=== PATIENT | female | born 1940 | race Caucasian/White ===

== ENCOUNTER → 2017-10-14 12:05 | Outpatient (CLI) | payer MEDICARE, SELFPAY ==
--- NOTE | 2017-10-14 12:12 | BI_ITS ---
MAMMOGRAPHY - BILATERAL SCREENING 3-D ARON SYNTHESIS REASON FOR EXAM: Female, 77 years old. Bilateral Screening 3-D tomosynthesis PERTINENT HISTORY: No significant family history. TECHNIQUE: 2-D mammograms and 3-D Aron synthesis of the breast (s) were performed. CAD was performed. COMPARISON: None. FINDINGS: The breast composition is composed of scattered fibroglandular density. Scattered benign calcifications are seen. No dense spiculated masses or suspicious microcalcifications are identified. No architectural distortion is identified. There is no skin thickening or retraction. There has been no significant change since the prior study. BI/SCREENING MAMM (CAD), BILAT IMPRESSION: No mammographic signs of malignancy. Routine yearly mammograms recommended. ASSESSMENT CATEGORY: BIRADS Category 1: Negative. A letter regarding these results will be sent to the patient by the facility within 30 days. FOLLOW UP RECOMMENDATION: Yearly follow up mammogram recommended. (A) Approximately 10% of breast cancers are not detected by mammography. A normal mammogram should not delay biopsy of a clinically suspicious abnormality. Electronically Signed: Lev Ley MD at 14:02 EDT , Service support ,
== END ==
PROVIDERS: Family Provider Physician Assistant; PCP Physician Assistant; Visit Provider Physician Assistant
DX: Z12.31 Encounter for screening mammogram for malignant neoplasm of breast (principal)
CPT/HCPCS: 77063; 77067

== ENCOUNTER 2018-08-03 10:30 | Outpatient (RCR) | payer MEDICARE, SELFPAY ==
--- NOTE | 2018-06-26 14:32 | HP.PTEVAL ---
Patient's Visit Information ELIANE MCKEON is a 78 year old F referred to Physical Therapy by TESS Schumacher with a diagnosis of L shoulder impingement. Date of Evaluation: 06/26/18 Physical Therapist: Feliz Diaz DPT, OCS, CSCS - Visit Plan Frequency: 2x /Week Duration: 2-4 Weeks Plan: 2x/week for 2-4 weeks for ... 1. RC and postural strength. 2. c/s L rotation ROM and pec stretches and postural focus. 3. 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 Friend wanted to move yessica Harris helped her workign with arms alot. Schroeder some trouble with L shoulder and it kept worsening. Put some gel which did nto help. Saw Dr. Monzon and had x rays. Offered pills and shot and did not want those. Agreed to cortisone injection. Was good for a few days it helped but hurt again soon. Injection was May a few weeks ago. L shoulder pain 9/10 prior to injections, x rays show OA and calcifications. Now a lot better unless she overdoes whcih she did last week. Did keep her up at night but ROM is limited. Shot helped 50%. Has seen chirpractor. Wants to wash wall and spring cleaning which she cannot do right now. 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 No regular exercises. - Pain L shoulder Pain Intensity (Out of 10): 0 Pain Intensity Range: 0, 10 - Objective L shulder tenderness supraspinatus mildly. L UT also tender moderately compared to R. Forward head posture. c/s AROM ext adn L SB and rotation pain in L UT, + c/s compression slightly. L rotation 45 adn R 65, ext to 50. UE AROM WFL and withotu pain B. reflexes 2/3 bi and triceps. Sensation WNL to gross light touch B. Strength 4/5 shoulders and elbows and wrist without pain or abnormalities. - HK and - neer test. - sulcus. repeated ret seems to improve ROM, NE on pain which is minimal today. Pecs tight B and head is forward as are scapula in posture. - Goals Goal 1:: Full aROM c/s without pain and Approp posture 50% of time without VC Goal Time Frame: 4-6 Weeks Goal 2:: Patient feel 75% improved in pain with 2/10 at worst and very intermittent. Goal Time Frame: 4-6 Weeks Goal 3:: i approp HEP for posture and necka nd shoulders to minimize future problems. Goal Time Frame: 4-6 Weeks Goal 4:: Work without increasing pain Goal Time Frame: 4-6 Weeks - Rehabilitation Potential Physical Therapy Diagnosis: L shoulder OA vs impingement vs. cervical. Rehabilitation Potential: Fair - Anticipated Interventions Patient/Client Instruction: Educate patient on: Condition, Plan of Care For the Purpose of:: To decrease pain, To increase ROM, To improve nutrient delivery to tissue Therapeutic Exercise to Include: Strength training, Postural training, Flexibilty training, Passive ROM, Active ROM For the Purpose of:: To decrease pain, To increase ROM, To improve nutrient delivery to tissue, To increase tolerance to activity/condition/position, To improve ability of physical actions for home/community/work/leisure Thank you for the opportunity to evaluate your patient. For Medicare and Medicare HMO plans, please review the plan of care and approve it. It will need to be FAXED BACK to us at [phone] for Medicare purposes. For Medicare only, by signing this I certify the plan of care. Please let me know if there are questions or concerns regarding this plan of care. Physician Signature: Date:
--- NOTE | 2018-10-10 18:48 | HP.PTDCSUM_ITS ---
HP - PT D/C Summary It has been my pleasure to treat ELIANE MCKEON under orders from TESS Schumacher, for the diagnosis of L shoulder impingement for a total of 4 visit(s). Discharge Date: 08/03/18 Please see the following information for a summary of their discharge status. - Subjective Subjective: Busy and not much pain. 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 Shoulder held up well. Getting exercises in sometimes. Keeps busy. Sleep is OK. Activities normal. Work is normal. No f/u with doctor. - Pain L shoulder Pain Intensity (Out of 10): 0 - Overall Improvement % Improvement: 100 - Objective Objective/Function: Full aROM and strength symmetrical without pain today in L shoulder. Neck ROM 50 ext 65 R rot and 70 L rotation without pain. Moving well - Goals Goal 1:: Full aROM c/s without pain and Approp posture 50% of time without VC Goal Progress: Goal Met Goal 2:: Patient feel 75% improved in pain with 2/10 at worst and very intermittent. Goal Progress: Goal Met Goal 3:: i approp HEP for posture and necka nd shoulders to minimize future problems. Goal Progress: Goal Met Goal 4:: Work without increasing pain Goal Progress: Goal Met - Plan Plan: D/C - D/C Information Discharge Comments: Doing well adn will attempt to continue HEP.Contact doctor if pain returns. If there are questions or concerns regarding this patient's physical therapy, please feel free to call me at [phone]. Thank you for the referral of this patient. Sincerely, Feliz Diaz, DPT, OCS, CSCS
== END 2018-08-03 19:00 | disposition home or self-care (01) ==
LOC: PT 10:30
PROVIDERS: Family Provider Physician Assistant; PCP Physician Assistant; Referring Provider Physician Assistant Surgical; Visit Provider Physician Assistant Surgical
DX: M25.512 Pain in left shoulder (principal); M19.012 Primary osteoarthritis, left shoulder
CPT/HCPCS: 97110; 97162; 97530

== ENCOUNTER → 2019-01-02 10:14 | Outpatient (CLI) | payer MEDICARE, SELFPAY ==
--- NOTE | 2019-01-02 10:17 | BI_ITS ---
MAMMOGRAPHY - BILATERAL SCREENING REASON FOR EXAM: Female, 78 years old. Routine annual screening examination. PERTINENT HISTORY: Non-contributory. TECHNIQUE: Digital bilateral breast aron (3D mammographic acquisition) in the CC and MLO projections. 2-D mediolateral oblique (MLO) and craniocaudad (CC) views of both breasts were obtained. CAD: Full Field Digital Mammography with Computer Added Detection was performed. COMPARISON: Comparison is made with prior study dated October 14, 2017 and January 15, 2016 FINDINGS: Breast Composition: There are scattered areas of fibroglandular density. There are no dominant masses or suspicious calcifications. No other significant abnormalities are identified. There has been no significant change since the prior study. BI/SCREEN MAMM (CAD) W/ARON BILAT IMPRESSION: Stable bilateral screening mammogram. Yearly follow-up mammogram recommended. (A) ASSESSMENT CATEGORY: BIRADS Category 1: Negative. A letter regarding these results will be sent to the patient by the facility within 30 days. Approximately 10% of breast cancers are not detected by mammography. A normal mammogram should not delay biopsy of a clinically suspicious abnormality. [id number] Electronically Signed: Jorge Luis Hernandez, at 14:07 EDT , Service support ,
== END ==
PROVIDERS: Family Provider Physician Assistant; PCP Physician Assistant; Referring Provider Physician Assistant; Visit Provider Physician Assistant
DX: Z12.31 Encounter for screening mammogram for malignant neoplasm of breast (principal)
CPT/HCPCS: 77063; 77067

== ENCOUNTER → 2020-08-14 07:58 | Outpatient (CLI) | payer MEDICARE, SELFPAY ==
--- NOTE | 2020-08-14 08:03 | BI_ITS ---
MAMMOGRAPHY - BILATERAL SCREENING REASON FOR EXAM: Female, 80 years old. Routine annual screening examination. PERTINENT HISTORY: Non-contributory. TECHNIQUE: Digital bilateral breast aron (3D mammographic acquisition) in the CC and MLO projections. 2-D mediolateral oblique (MLO) and craniocaudad (CC) views of both breasts were obtained. CAD: Full Field Digital Mammography with Computer Added Detection was performed. COMPARISON: Comparison is made with prior examination dated 01/02/2019 and 10/14/2017. FINDINGS: Breast Composition: There are scattered areas of fibroglandular density. Possible 1.2 cm nodular density in the upper lateral deep portion of the right breast. Correlation with ultrasound is recommended. No other significant abnormalities are identified. BI/SCRN MAMM (CAD)W/ARON BILAT IMPRESSION: Possible 1.2 cm nodular density in the upper lateral deep portion of the right breast. Correlation with ultrasound is recommended. ASSESSMENT CATEGORY: BIRADS Category 0: Incomplete. Need additional imaging evaluation. A letter regarding these results will be sent to the patient by the facility within 30 days. Approximately 10% of breast cancers are not detected by mammography. A normal mammogram should not delay biopsy of a clinically suspicious abnormality. [id number] Electronically Signed: Jorge Luis Hernandez MD at 10:30 EDT , Service support ,
== END ==
PROVIDERS: PCP Physician Assistant; Referring Provider Physician Assistant; Visit Provider Physician Assistant
DX: Z12.31 Encounter for screening mammogram for malignant neoplasm of breast (principal)
CPT/HCPCS: 77063; 77067

== ENCOUNTER → 2020-08-21 10:22 | Outpatient (CLI) | payer MEDICARE, SELFPAY ==
--- NOTE | 2020-08-21 10:26 | US_ITS ---
STUDY: ULTRASOUND BREAST - RIGHT REASON FOR EXAM: Female, 80 years old. Abnormal screening mammogram. TECHNIQUE: Axial and longitudinal images of the RIGHT breast were performed with a high resolution ultrasound transducer. # OF IMAGES: 43 COMPARISON: Comparison is made with prior mammogram dated 08/14/2020. FINDINGS: RIGHT Breast: The lateral half of the right breast was examined by ultrasound. No sonographic abnormality is seen. Additional mammographic views will be obtained. US/Breast Limited Unilateral IMPRESSION: Unremarkable sonographic examination of the right breast as described. Additional mammographic views will be obtained. ASSESSMENT CATEGORY: BIRADS Category 0: Incomplete. Need additional imaging evaluation. A letter regarding these results will be sent to the patient by the facility within 30 days. Electronically Signed: Jorge Luis Hernandez MD at 13:26 EDT , Service support ,
--- NOTE | 2020-08-21 11:07 | BI_ITS ---
MAMMOGRAPHY - UNILATERAL DIAGNOSTIC: RIGHT BREAST REASON FOR EXAM: Female, 80 years old. Abnormal screening mammogram. PERTINENT HISTORY: Non-contributory. TECHNIQUE: Compression spot views of the right breast were obtained in the craniocaudad view and MLO view. CAD: Full Field Digital Mammography with Computer Added Detection was performed. COMPARISON: Comparison is made with prior mammogram dated 08/14/2020. FINDINGS: Breast Composition: There are scattered areas of fibroglandular density. There are no dominant masses or suspicious calcifications. No other significant abnormalities are identified. BI/DIAG MAMM W/CAD, UNILAT IMPRESSION: Stable unilateral diagnostic mammogram. One year follow-up mammogram recommended. (A) ASSESSMENT CATEGORY: BIRADS Category 2: Benign. A letter regarding these results will be sent to the patient by the facility within 30 days. Approximately 10% of breast cancers are not detected by mammography. A normal mammogram should not delay biopsy of a clinically suspicious abnormality. Electronically Signed: Jorge Luis Hernandez MD at 14:58 EDT , Service support ,
== END ==
PROVIDERS: PCP Physician Assistant; Referring Provider Family Medicine; Visit Provider Family Medicine
DX: R92.2 Inconclusive mammogram (principal)
CPT/HCPCS: 76642; 77065

== ENCOUNTER → 2021-10-01 | Outpatient (CLI) | payer MEDICARE, SELFPAY ==
--- NOTE | 2021-10-01 10:20 | BI_ITS ---
MAMMOGRAPHY - BILATERAL SCREENING REASON FOR EXAM: Female, 81 years old. Routine annual screening examination. PERTINENT HISTORY: Non-contributory. TECHNIQUE: Digital bilateral breast aron (3D mammographic acquisition) in the CC and MLO projections. 2-D mediolateral oblique (MLO) and craniocaudad (CC) views of both breasts were obtained. CAD: Full Field Digital Mammography with Computer Added Detection was performed. COMPARISON: Comparison is made with prior study dated 08/14/2020 and 01/02/2019. FINDINGS: Breast Composition: There are scattered areas of fibroglandular density. There are no dominant masses or suspicious calcifications. Stable benign-appearing bilateral No other significant abnormalities are identified. There has been no significant change since the prior study. BI/SCRN MAMM (CAD)W/ARON BILAT IMPRESSION: Stable bilateral screening mammogram. Yearly follow-up mammogram recommended. (A) ASSESSMENT CATEGORY: BIRADS Category 2: Benign. A letter regarding these results will be sent to the patient by the facility within 30 days. Approximately 10% of breast cancers are not detected by mammography. A normal mammogram should not delay biopsy of a clinically suspicious abnormality. [id number] Electronically Signed: Jorge Luis Hernandez MD at 11:38 EDT ,
== END | disposition home or self-care (01) ==
LOC: OPBI 10:18
PROVIDERS: PCP Physician Assistant; Visit Provider Physician Assistant
DX: Z12.31 Encounter for screening mammogram for malignant neoplasm of breast (principal)
CPT/HCPCS: 77063; 77067

== ENCOUNTER → 2023-02-08 | Outpatient (CLI) | payer MEDICARE, SELFPAY ==
--- NOTE | 2023-02-08 13:06 | BI_ITS ---
MAMMOGRAPHY - BILATERAL SCREENING REASON FOR EXAM: Female, 83 years old. Routine annual screening examination. PERTINENT HISTORY: Non-contributory. TECHNIQUE: Digital bilateral breast aron (3D mammographic acquisition) in the CC and MLO projections. 2-D mediolateral oblique (MLO) and craniocaudad (CC) views of both breasts were obtained. CAD: Full Field Digital Mammography with Computer Added Detection was performed. COMPARISON: Comparison is made with prior examination of October 01, 2021 and August 21, 2020. FINDINGS: Breast Composition: There are scattered areas of fibroglandular density. There are no dominant masses or suspicious calcifications. No other significant abnormalities are identified. There has been no significant change since the prior study. BI/SCRN MAMM (CAD)W/ARON BILAT IMPRESSION: Stable bilateral screening mammogram. Yearly follow-up mammogram recommended. (A) ASSESSMENT CATEGORY: BIRADS Category 1: Negative. A letter regarding these results will be sent to the patient by the facility within 30 days. Approximately 10% of breast cancers are not detected by mammography. A normal mammogram should not delay biopsy of a clinically suspicious abnormality. [id number] Electronically Signed: Jorge Luis Hernandez MD at 13:49 EST ,
== END | disposition home or self-care (01) ==
LOC: OPBI 13:05
PROVIDERS: PCP Physician Assistant; Referring Provider Physician Assistant; Visit Provider Physician Assistant
DX: Z12.31 Encounter for screening mammogram for malignant neoplasm of breast (principal)
CPT/HCPCS: 77063; 77067

== ENCOUNTER 2023-02-20 13:06 | Emergency (ER) | payer MEDICARE, SELFPAY ==
[2023-02-20 13:07] VITALS: BP 171/92; PULSE 89; RESP 18; TEMP 35.7; O2SAT 99; BMI 21.9
[2023-02-20 13:20] VITALS: BP 175/91
--- NOTE | 2023-02-20 13:20 | EKG12_ITS ---
Test Reason : DIZZINESS Blood Pressure : / mmHG Vent. Rate : 068 BPM Atrial Rate : 068 BPM P-R Int : 146 ms QRS Dur : 076 ms QT Int : 394 ms P-R-T Axes : 077 010 066 degrees QTc Int : 418 ms Normal sinus rhythm Normal ECG Confirmed by CLAUDIA SANCHEZ, ASIM ([id number]), video effects editor JERZY HERBERT ([id number]) on 02/22/2023 1:05:28 PM Referred By: BIJAL/JOSSIE Confirmed By:ASIM TAYLOR MD
--- NOTE | 2023-02-20 13:20 | CT_ITS ---
INDICATION: Dizziness EXAMINATION: CT BRAIN - CT Head or Brain W/O Contrast Injection TECHNIQUE: Multiple axial images were obtained of the head without intravenous contrast. A radiation dose optimization technique was used for this scan. IV Contrast dosage and agent: None. RADIATION DOSAGE (If Supplied By Facility): CTDIvol = ( 44.99 ) mGy, DLP = ( 745.49 ) mGycm COMPARISON: Prior study dated: 07/26/2015. FINDINGS: BRAIN PARENCHYMA: No intra- or extra-axial hemorrhage. Possible hemorrhage identified by AI not seen. No evidence of acute infarct. Mild periventricular deep white matter changes likely due to microvascular disease. Dural based falx calcification unchanged the prior exam. There is preservation of the white/white matter interface. Posterior fossa structures are unremarkable. CSF SPACES: Appropriate for age. No hydrocephalus. Basal cisterns are patent. CALVARIUM, SKULL BASE, PARANASAL SINUSES AND MASTOID AIR CELLS: Mild mucosal thickening of the left sphenoid sinus. No discrete lytic or blastic abnormalities. ORBITS: Previous bilateral cataract surgery. CT/Brain/Head without Contrast IMPRESSION: 1. No acute intracranial process. 2. If symptoms persist, follow-up exam or MRI of the brain is recommended. Electronically Signed: Anup Marroquin MD at 14:34 EST ,
--- NOTE | 2023-02-20 13:21 | EX.ED.DYSGE1 ---
HPI History of Present Illness Chief Complaint: Dizziness Narrative Narrative: 83-year-old female past medical history of hypertension presents with headache and dizziness that she has had for the last 2 days. States on Tuesday evening she began having a headache all over and felt dizzy and lightheaded. She denies any chest pain or shortness of breath. She woke up in the morning yesterday and felt improved, however today, she states she feels mildly off balance. She denies any paresthesias of her arms and legs, no distinct exacerbating or alleviating factors, not necessarily worse with standing but she does feel like she is going to fall. She has a headache all over. No nausea or vomiting. [facility] Medical History HTN (hypertension) Home Medications docusate sodium 100 mg capsule (DOK) 100 mg PO DAILY ##20 07/26/15 [Rx Last Taken Unknown] losartan 50 mg tablet 50 mg PO DAILY 07/26/15 [History Last Taken Unknown] oxycodone-acetaminophen 5 mg-325 mg tablet 1 tab PO Q4H PRN PRN Pain #20 tabs 07/26/15 [Rx Last Taken Unknown] Hydrocodone Bit/Homatropine [Hycodan Syrup] 5 ml PO Q6H PRN PRN Cough ##60 02/12/16 [Rx Last Taken Unknown] losartan 25 mg tablet mg 02/20/23 [History Last Taken Unknown] Allergy/AdvReac Type Severity Reaction Status Date / Time acetaminophen [From Vicodin] AdvReac Other Verified 02/20/23 13:07 Histamine H2 Inhibitors AdvReac Other Verified 02/20/23 13:07 hydrocodone bitartrate AdvReac Other Verified 02/20/23 13:07 [From Vicodin] Social History Smoking Status: Former smoker ROS ROS ED ROS Narrative Constitutional: No fever, no chills. HEENT: No sore throat. No neck pain. No loss of vision. No rhinorrhea. Cardiovascular: No chest pain. No palpitations. No pedal edema. Respiratory: No cough, no shortness of breath. Abdominal: No abdominal pain. No nausea. No vomiting. Genitourinary: No dysuria. No hematuria. Musculoskeletal: No myalgias. No arthralgias. Neurologic: Positive headaches. Positive lightheadedness and dizziness. Skin: No rash. No change in color. Psychiatric: No depression. No anxiety. EXAM Physical Exam Narrative Exam Narrative: Afebrile. Vital signs noted. HEENT: Normocephalic. Atraumatic. PERRL, EOMI. Neck soft and supple. No point tenderness or step off. Cardiovascular: Regular rate and rhythm. No murmurs, rubs, or gallops appreciated. Respiratory: No tachypnea. Lungs clear to auscultation bilaterally. Gastrointestinal: Abdomen soft, nontender, with normoactive bowel sounds. No rebound or guarding. Neurological: Awake. Alert. Oriented x3. Nonfocal, nonlateralizing. Skin: No rash. Normal color. No pallor. Musculoskeletal: No pedal edema. Full range of motion extremities. Const Vital Signs: 02/20/23 13:07 02/20/23 13:17 02/20/23 13:20 Temperature 96.2 F L Temperature Source Temporal Pulse Rate 89 Respiratory Rate 18 Respiratory Effort Normal Non-Labored Respiratory Pattern Normal Blood Pressure 171/92 H 175/91 H Blood Pressure Mean 118 119 Pulse Ox 99 MDM MDM MDM Narrative Medical decision making narrative: In the differential diagnosis is hypertensive encephalopathy versus intracranial hemorrhage from hypertension, versus migrainous type headache. I have low concern for stroke as her exam is not consistent with this and is nonfocal and nonlateralizing. I do feel CT of the brain is indicated. Comprehensive work-up will be pursued including CBC and CMP to look for signs of dehydration. I do feel that 1 troponin would be indicated to help rule out cardiac ischemia as a cause of her lightheadedness and dizziness. She is mildly hypertensive here at 175/91. I will also obtain a chest x-ray and UA. EKG was obtained and interpreted by myself independently as normal sinus rhythm at 68 bpm without ectopy or acute ST changes. No STEMI. I reviewed her laboratory work from today and she has a normal white count of 5.4, hemoglobin normal 13.7, platelet count normal at 254. Electrolyte panel shows no gross abnormality except for slightly elevated creatinine of 1.05 and an anion gap low at 2, glucose is appropriately elevated at 154. I do not have concern for diabetic ketoacidosis. She states she has borderline diabetes. High-sensitivity troponin is 5. I do not feel she needs serial enzymes as she has had headache ongoing for the last few days. CT of the brain was obtained and I reviewed the radiology report which shows no evidence of acute fracture or hemorrhage. Her blood pressure has come down to 149/70 on its own. Upon repeat examination, she states her headache is completely gone. It may have been from slightly elevated blood pressure. She was told to keep a log of her blood pressures for her primary care provider as she states previously her losartan was lowered to 25 mg daily. Urinalysis was obtained and is negative for infection. I do not feel antibiotics are indicated. As she is feeling improved, I feel she can be discharged to follow-up with her primary care provider. I do not feel she requires hospitalization currently. Additionally, chest x-ray in 1 view was obtained and interpreted by myself independently as no evidence of an acute process, no pneumonia or pneumothorax. I reviewed the radiology report which confirms my independent interpretation. I feel she can be discharged to follow-up. Patient is agreeable to the plan. Disposition is discharged home in stable condition. History & Record Review Discussion w/independent historian: Patient Additional record(s) reviewed:: Prior ED visit and Prior labs Lab Data Attestation: I reviewed the patient's lab results. Labs: Laboratory Results - last 24 hr 02/20/23 02/20/23 13:15 14:35 WBC 5.4 RBC 4.81 Hgb 13.7 Hct 42.0 MCV 87.3 MCH 28.5 MCHC 32.6 RDW Std Deviation 42.2 RDW Coeff of [place] 13.2 Plt Count 254 MPV 8.4 Immature Gran % (Auto) 0.200 Neut % (Auto) 58.2 Lymph % (Auto) 28.9 [place] % (Auto) 9.6 Eos % (Auto) 2.4 Baso % (Auto) 0.7 Absolute Neuts (auto) 3.1 Absolute Lymphs (auto) 1.56 Nucleated RBC % 0 Sodium 136 Potassium 4.4 Chloride 103 Carbon Dioxide 31.0 Anion Gap 2 L BUN 16 Creatinine 1.05 H Estim Creat Clear Calc 40.86 Est GFR (MDRD) Af Amer 65 Est GFR (MDRD) Non-Af 54 L BUN/Creatinine Ratio 15.2 Glucose 154 H Calcium 9.6 Total Bilirubin 0.60 AST 13 L ALT 15 Alkaline Phosphatase 64 Troponin I High Sens 5 Total Protein 7.6 Albumin 3.7 Globulin 3.9 Albumin/Globulin Ratio 0.9 Urine Color Yellow Urine Clarity Clear Urine pH 6.5 Ur Specific [place] 1.010 Urine Protein Negative Urine Glucose (UA) Normal Urine Ketones Negative Urine Occult Blood 25 H Urine Nitrite Negative Urine Bilirubin Negative Urine Urobilinogen Normal Ur Leukocyte Esterase Negative Urine RBC 0-5 SEEN Urine WBC 0 SEEN Ur Squamous Epith Cells 0 SEEN Urine Bacteria 0 SEEN Urine Mucus 0 SEEN Radiography Diagnostic Testing: Clinical Impression(s) from Imaging Studies Brain CT 02/20/23 13:20 IMPRESSION: 1. No acute intracranial process. 2. If symptoms persist, follow-up exam or MRI of the brain is recommended. Electronically Signed: Anup Marroquin MD at 14:34 EST Reading Location ID and State: [facility] / [place] Tel , Service support , Chest X-Ray 02/20/23 13:32 IMPRESSION: No radiographic evidence of acute cardiopulmonary disease. Electronically Signed: Anup Marroquin MD at 14:06 EST , Discharge Plan Triage Chief Complaint: Dizziness ED Provider: Drake Oakley Dx/Rx/DC Orders Clinical Impression: Light-headedness, Headache, Hypertension Instructions: ED Hypertension, Established, ED Near-Fainting, Uncertain Cause Prescriptions: No Action losartan 50 MG tablet 50 mg PO DAILY oxycodone-acetaminophen 1 TABLET tablet 1 tab PO Q4H PRN PRN (Reason: Pain) Qty: 20 0RF docusate sodium [DOK] 100 MG capsule 100 mg PO DAILY Qty: 20 0RF Hydrocodone Bit/Homatropine [Hycodan Syrup] 5 ML Udc 5 ml PO Q6H PRN PRN (Reason: Cough) Qty: 60 0RF losartan 25 mg tablet Patient Comments: take 1 tablet by mouth once daily for blood pressure Primary Care Provider: José Miguel Ruiz Referrals: Ruiz,M Pato PA, PA [Primary Care Provider] - As soon as possible Disposition Disposition: Home, Self Care
[2023-02-20 13:31] LABS: Absolute Lymphocyte Count 1.56 X10^3/uL (0.83-4.51); Absolute Neutrophil Count 3.1 X10^3/uL (2.0-7.7); Basophil# 0.04 X10^3/uL; Basophil% 0.7 % (0-1); Eosinophil# 0.13 X10^3/uL; Eosinophils% 2.4 % (0-5); Hemoglobin 13.7 g/dL (12.0-15.0); Lymphocyte # 1.56 X10^3/ul (0.83-4.51); Lymphocyte % 28.9 % (19-41); Mean Corp Hgb Conc 32.6 g/dL (32-36); Mean Corpuscular Hgb 28.5 pg (27.0-32.0); Mean Corpuscular Volume 87.3 fL (81-99); Mean Platelet Vol. 8.4 fl (6.2-12.0); Monocyte# 0.52 X10^3/uL; Monocyte% 9.6 % (0-10); NRBC Flagged by Analyzer 0 % (0-5); Neutrophil # 3.13 X10^3/uL (2.7-7.7); Neutrophil % 58.2 % (47-70); Platelet Count 254 K/mm3 (150-450); RBC Distribution Width CV 13.2 % (11.6-14.6); RBC Distribution Width SD 42.2 fl (35.1-43.9); Red Blood Count 4.81 M/mm3 (4.2-5.4); White Blood Count 5.4 K/mm3 (4.4-11.0)
--- NOTE | 2023-02-20 13:32 | RAD_ITS ---
INDICATION: CAD EXAMINATION/TECHNIQUE: X-RAY - XR Chest 1 View COMPARISON: Prior study dated: 02/12/2016. FINDINGS: LINES/DEVICES: None. LUNGS: No consolidation, edema or effusion. No pneumothorax. MEDIASTINUM AND CARDIOVASCULAR STRUCTURES: Cardiac silhouette not enlarged. Central airways and mediastinal contour are unremarkable. BONES AND SOFT TISSUES: Unremarkable. RAD/Chest 1 View (Portable) IMPRESSION: No radiographic evidence of acute cardiopulmonary disease. Electronically Signed: Anup Marroquin MD at 14:06 EST ,
[2023-02-20 13:52] LABS: ALB/GLOB Ratio 0.9 RATIO (0.9-2.4); AST(SGOT) 13 U/L (15-37); Alanine Aminotransfer ALT/SGPT 15 U/L (13-56); Albumin, Serum 3.7 g/dL (3.2-5.0); Alkaline Phosphatase 64 U/L (45-117); Anion Gap 2 (5-15); BUN 16 mg/dL (7-18); BUN/Creat Ratio 15.2 RATIO (10-20); Calcium,Total 9.6 mg/dL (8.5-10.1); Chloride 103 mmol/L (98-107); Creatinine, Serum 1.05 mg/dL (0.55-1.02); EST Glomerular Filtration Rate 54 mL/min (>60); Est Glom Filt Rate - Afr Amer 65 mL/min (>60); Estimated Creatinine Clearance 40.86 ml/min; Globulin 3.9 g/dL (2.2-4.2); Glucose 154 mg/dL (74-106); Potassium 4.4 mmol/L (3.5-5.1); Protein, Total 7.6 g/dL (6.4-8.2); Sodium Level 136 mmol/L (136-145); Troponin-I HS 5 pg/mL (3.0-54.0)
[2023-02-20 14:39] LABS: Bacteria 0 SEEN /hpf (None Seen); Mucous, Urine 0 SEEN /hpf (<or=2+); Squamous Epithelial Cells - UA 0 SEEN /hpf (5-10); White Blood Cells 0 SEEN /hpf (0-5)
[2023-02-20 14:44] LABS: Color, Urine Yellow (Yellow); Glucose, Dipstick Normal (Normal); Ketone-Dipstick Negative (Negative); Leukocyte Esterase-Dipstick Negative /ul (Negative); Nitrite-Dipstick Negative (Negative); Occult Blood-Urine 25 /ul (Negative); Protein-Dipstick Negative (Negative); Urine Bilirubin Dipstick Negative (Negative); Urine Clarity Clear (Clear); Urine Urobilinogen Normal (Normal); Urine pH 6.5 (5.0 - 8.0)
[2023-02-20 15:09] LABS: Red Blood Cells-Urine 0-5 SEEN /hpf (0-5)
[2023-02-20 15:33] VITALS: BP 149/70; PULSE 58; RESP 17; O2SAT 99
== END 2023-02-20 15:52 | disposition home or self-care (01) ==
PROVIDERS: Emergency Provider Emergency Medicine; PCP Physician Assistant; Visit Provider Emergency Medicine
DX: R42 Dizziness and giddiness (principal); R51.9 Headache, unspecified; Z87.891 Personal history of nicotine dependence; I10 Essential (primary) hypertension; Z79.899 Other long term (current) drug therapy
CPT/HCPCS: 70450; 71045; 80053; 81001; 84484; 85025; 93005; 99285

== ENCOUNTER → 2024-03-08 | Outpatient (CLI) | payer MEDICARE, SELFPAY ==
--- NOTE | 2024-03-08 07:25 | BI_ITS ---
MAMMOGRAPHY - BILATERAL SCREENING REASON FOR EXAM: Female, 84 years old. Routine annual screening examination. PERTINENT HISTORY: Non-contributory. TECHNIQUE: Digital bilateral breast aron (3D mammographic acquisition) in the CC and MLO projections. 2-D mediolateral oblique (MLO) and craniocaudad (CC) views of both breasts were obtained. CAD: Full Field Digital Mammography with Computer Added Detection was performed. COMPARISON: Comparison is made with prior study dated February 08, 2023 and October 01, 2021. FINDINGS: Breast Composition: There are scattered areas of fibroglandular density. There are no dominant masses or suspicious calcifications. Stable bilateral fat containing axillary lymph nodes. No other significant abnormalities are identified. There has been no significant change since the prior study. BI/SCRN MAMM (CAD)W/ARON BILAT IMPRESSION: Stable bilateral screening mammogram. Yearly follow-up mammogram recommended. (A) ASSESSMENT CATEGORY: BIRADS Category 2: Benign. A letter regarding these results will be sent to the patient by the facility within 30 days. Approximately 10% of breast cancers are not detected by mammography. A normal mammogram should not delay biopsy of a clinically suspicious abnormality. [id number] Electronically Signed: Jorge Luis Hernandez MD at 8:45 EST ,
== END | disposition home or self-care (01) ==
LOC: OPBI 07:24
PROVIDERS: PCP Physician Assistant; Referring Provider Registered Nurse; Visit Provider Registered Nurse
DX: Z12.31 Encounter for screening mammogram for malignant neoplasm of breast (principal)
CPT/HCPCS: 77063; 77067

== ENCOUNTER 2024-07-19 21:07 | Emergency (ER) | payer MEDICARE, SELFPAY ==
[2024-07-19 21:08] VITALS: BP 200/95; PULSE 101; RESP 22; TEMP 36.1; O2SAT 98; BMI 24.0
--- NOTE | 2024-07-19 22:13 | EDS_ITS ---
HPI History of Present Illness Chief Complaint: Eye Problem Detail of Chief Complaint: Blurred vision Informant: patient Narrative Narrative: Patient presents with complaint of blurred vision that started few hours ago. Patient states that she ran out of one of her eyedrops dorzolamide that she takes normally twice a day. 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 She had a refill on the dorzolamide but she think she may have accidentally thrown it out. Her eye doctor called in a new prescription is waiting for her at the pharmacy tomorrow. Patient woke up to get some Tylenol this evening and noted that her vision was a little bit blurry with both eyes. She denies double vision. Denies eye pain. She otherwise has no complaints. [facility] Medical History HTN (hypertension) Home Medications ?Medication ?Instructions ?Recorded ?Last Taken ?Type docusate sodium 100 mg capsule 100 mg PO DAILY ##20 Unknown Rx (DOK) losartan 50 mg tablet 50 mg PO DAILY 07/26/15 Unkn own History oxycodone-acetaminophen 5 mg-325 1 tab PO Q4H PRN PRN Pain #20 tabs 07/26/15 Unknown Rx mg tablet Hydrocodone Bit/Homatropine 5 ml PO Q6H PRN PRN Cough ##60 02/12/16 Unknown Rx [Hycodan Syrup] losartan 25 mg tablet mg 02/20/23 Unknown History Allergy/AdvReac Type Severity Reaction Status Date / Time acetaminophen (From Vicodin) AdvReac Other Verified 07/19/24 21:08 Histamine H2 Inhibitors AdvReac Other Verified 07/19/24 21:08 hydrocodone bitartrate (From AdvReac Other Verified 07/19/24 21:08 Vicodin) Social History Smoking Status: Former smoker ROS ROS ED Review of Systems ROS Unobtainable: other Constitutional Constitutional ED: Reports lethargy; Denies chills, fever(s), sweats or weight loss Eyes Eyes: Reports blurry vision; Denies change in vision or diplopia ENT ENT ED: Denies rhinorrhea or sore throat Cardiovascular Cardiovascular: Denies chest pain, orthopnea or racing heartbeat Respiratory/Chest Respiratory/Chest: Denies cough, dyspnea, dyspnea on exertion, orthopnea or sputum Gastrointestinal Gastrointestinal: Denies abdominal pain, diarrhea, nausea or vomiting Genitourinary Genitourinary ED: Denies dysuria, hematuria or urinary frequency Musculoskeletal Musculoskeletal: Denies arthralgias, back pain, myalgias or neck pain Integumentary Denies abscess, Abrasions or rash Neurologic Neurologic: Denies headache(s) or weakness Psychiatric Psychiatric: Denies anxiety, depression or suicidal thoughts Endocrine Endocrinology: Denies polydipsia, polyphagia or polyuria Hematologic/Lymphatic Hematologic/Lymphatic: Denies easy bleeding, easy bruising or lymphadenopathy Allergic/Immunologic Allergic/Immunologic ED: Denies mouth swelling, tongue swelling or urticaria EXAM Physical Exam Const Vital Signs: 07/19/24 21:08 Temperature 97 F L Temperature Source Temporal Pulse Rate 101 H Respiratory Rate 22 H Blood Pressure 200/95 H Blood Pressure Mean 130 Pulse Ox 98 Oxygen Delivery Method Room Air Positive well nourished and well developed General Appearance ED: well developed and NAD HEENT Reports TM's clear and moist mucous membranes normocephalic and atraumatic; Negative for trauma or tenderness Tympanic Membrane ED: Yes TM's clear Eyes PERRL and EOMs intact bilaterally Eyes Narrative: No conjunctival erythema. No tearing. Normal extraocular muscle movement bilaterally. General Eye ED: Negative for pale conjunctiva or scleral icterus Neck no lymphadenopathy, supple and no JVD General: Negative for tenderness Chest Wall inspection of chest normal and palpation of chest normal Chest: Negative for tenderness Resp normal respiratory effort and clear to auscultation bilaterally Effort and Inspection: Negative for respiratory distress or pain with movement Auscultation: Negative for rhonchi, wheezes or diminished lung sounds Cardio regular rate, regular rhythm, S1 normal heart sound, S2 normal heart sound and no murmurs Peripheral Pulses: pulses 2+ throughout GI normal to inspection, nondistended, normoactive bowel sounds, soft to palpation, non-tender, non-distended and no masses Back/Spine no CVA tenderness and no thoracic nor lumbar tenderness Extremity normal to inspection General Extremety ED: Negative for edema General Extremity: Negative for edema Neuro oriented x3, CN's II-XII intact bilaterally, no sensory deficits noted and gait normal Sensorium / Orientation: awake, alert, oriented to person, oriented to place and oriented to time Motor Exam: strength 5/5 throughout and strength abnormal Psych mental status grossly normal Skin no rashes or lesions noted and no wounds MDM MDM MDM Narrative Medical decision making narrative: Patient was given dorzolamide while in the emergency department. Visual acuity was performed and was 100/20 right eye and 100/20 left eye and 100/20 both eyes. She felt immediately improved after treatment with the eyedrops. Her cardiopulmonary specialist is not on-call tonight. She is comfortable going home and fo llowing up with their office. Discharge Plan Triage Chief Complaint: Eye Problem ED Provider: Linette Stubbs Dx/Rx/DC Orders Clinical Impression: Blurred vision, Medication refill Instructions: ED Blurred Vision Prescriptions: No Action losartan 50 MG tablet 50 mg PO DAILY oxycodone-acetaminophen 1 TABLET tablet 1 tab PO Q4H PRN PRN (Reason: Pain) Qty: 20 0RF docusate sodium [DOK] 100 MG capsule 100 mg PO DAILY Qty: 20 0RF Hydrocodone Bit/Homatropine [Hycodan Syrup] 5 ML Udc 5 ml PO Q6H PRN PRN (Reason: Cough) Qty: 60 0RF losartan 25 mg tablet Patient Comments: take 1 tablet by mouth once daily for blood pressure Primary Care Provider: Elisa Chu NP Referrals: José Miguel Ruiz PA [Non-Staff] - Activity Restrictions/Additional Instructions: Follow-up with your cardiopulmonary specialist within the next 2 to 3 days Print Language: Amharic Disposition Disposition: Home, Self Care
[2024-07-19] MEDS: Dorzolamide 2% 10ml Bottle 1 DRP EACH EYE (22:31)
[2024-07-19 23:17] VITALS: BP 132/80; PULSE 67; RESP 12; TEMP 36.9; O2SAT 100
== END 2024-07-19 23:27 | disposition home or self-care (01) ==
PROVIDERS: Emergency Provider Emergency Medicine; PCP Registered Nurse; Referring Provider Emergency Medicine; Visit Provider Emergency Medicine
DX: H53.8 Other visual disturbances (principal); I10 Essential (primary) hypertension; Z87.891 Personal history of nicotine dependence; Z76.0 Encounter for issue of repeat prescription; Z79.899 Other long term (current) drug therapy
CPT/HCPCS: 99283

== ENCOUNTER 2024-07-22 21:11 | Emergency (ER) | payer MEDICARE, SELFPAY ==
[2024-07-22 21:12] VITALS: BP 211/115; PULSE 104; RESP 18; TEMP 36.4; O2SAT 99; BMI 23.8
[2024-07-22 22:40] VITALS: BP 162/95; PULSE 85; RESP 16; TEMP 36.8; O2SAT 99
[2024-07-22 22:45] VITALS: PULSE 85; RESP 18; O2SAT 97
--- NOTE | 2024-07-22 23:54 | EDS_ITS ---
HPI History of Present Illness Chief Complaint: Vision Prob Informant: patient Narrative Narrative: 84-year-old female presenting to the emergency room out of concern for vision. Patient states 9 years ago she had a corneal surgery in [place]. She follows locally with Dr. Kyle and has been on a multi eyedrop regimen. She was seen in the emergency department a few days ago because she was out of her dorzolamide. She states he typically takes latanoprost with the dorzolamide in the morning and then in the evening she takes prednisolone drops with dorzolamide. She states for 2 days she was out of the dorzolamide. She states that night into Tuesday she had fog in her vision that resolved. Today she did not have her latanoprost and she used the prednisolone in the morning and in the evening. She states she was laying in bed when she felt something come over me and I felt like somebody was trying to talk to me perhaps it was God. She states that when she opened her eyes the room was dark and she turned on the lights and she felt that her vision was again foggy. She states that she does not have eye pain. She notes no redness of the eyes no headache. She states that she has no loss in any of the quadrants of her vision. She does not see spots. She states that she has been under a great deal of stress recently with the interpersonal relationship with her son and gives multiple examples. She also states that a close friend of hers recently. She states that while she feels very anxious regarding those personal matters she does not wish anything for anxiety because of prior problems with the medications in the past. She states that she plans on calling her eye doctor tomorrow. She states that she walked here and called a friend who is going to give her a ride home and is thankful that her friend is currently praying for her. [facility] Medical History HTN (hypertension) Medical History unable to obtain Home Medications ?Medication ?Instructions ?Recorded ?Last Taken ?Type docusate sodium 100 mg capsule 100 mg PO DAILY ##20 Unknown Rx (DOK) losartan 50 mg tablet 50 mg PO DAILY 07/26/15 Unkn own History oxycodone-acetaminophen 5 mg-325 1 tab PO Q4H PRN PRN Pain #20 tabs 07/26/15 Unknown Rx mg tablet Hydrocodone Bit/Homatropine 5 ml PO Q6H PRN PRN Cough ##60 02/12/16 Unknown Rx [Hycodan Syrup] losartan 25 mg tablet mg 02/20/23 Unknown History Allergy/AdvReac Type Severity Reaction Status Date / Time acetaminophen (From Vicodin) AdvReac Other Verified 07/22/24 21:15 Histamine H2 Inhibitors AdvReac Other Verified 07/22/24 21:15 hydrocodone bitartrate (From AdvReac Other Verified 07/22/24 21:15 Vicodin) Social History Smoking Status: Unknown if ever smoked ROS ROS ED Constitutional Constitutional ED: Denies chills, fever(s) or weight loss Eyes Eyes: Reports change in vision and other Details: foggy vision ; Denies blurry vision or diplopia ENT ENT ED: Denies ear pain, rhinorrhea or sore throat Cardiovascular Cardiovascular: Denies chest pain, orthopnea, palpitations or racing heartbeat Respiratory/Chest Respiratory/Chest: Denies cough, dyspnea or orthopnea Gastrointestinal Gastrointestinal: Denies abdominal pain, diarrhea, nausea or vomiting Genitourinary Genitourinary ED: Denies dysuria, hematuria or urinary frequency Musculoskeletal Musculoskeletal: Denies arthralgias or myalgias Integumentary Denies abscess or rash Neurologic Neurologic: Denies headache(s) or weakness Psychiatric Psychiatric: Denies anxiety, depression, suicidal ideation or suicidal thoughts Endocrine Endocrinology: Denies polydipsia, polyphagia or polyuria Allergic/Immunologic Allergic/Immunologic ED: Denies mouth swelling, tongue swelling or urticaria EXAM Physical Exam Narrative Exam Narrative: Patient is able to read a book that she brought with her as well as use her phone without obvious difficulty Const Vital Signs: 07/22/24 21:12 07/22/24 22:40 07/22/24 22:45 Temperature 97.5 F L 98.2 F Temperature Source Oral Pulse Rate 104 H 85 85 Respiratory Rate 18 16 18 Blood Pressure 211/115 H 162/95 H Blood Pressure Mean 147 117 Pulse Ox 99 99 97 Oxygen Delivery Method Room Air Room Air Positive well nourished and well developed General Appearance ED: well developed HEENT Reports normocephalic, head/scalp atraumatic and moist mucous membranes Eyes PERRL and EOMs intact bilaterally Eyes Narrative: Nondilated funduscopic exam I do not appreciate any obvious retinal detachment. There is no photophobia. There is no conjunctival injection. The anterior chambers are quiet. Extraocular motions are intact. I do not appreciate corneal abrasion. Neck no lymphadenopathy, supple and no JVD Resp normal respiratory effort and clear to auscultation bilaterally Cardio regular rate, regular rhythm and no murmurs GI normal to inspection, nondistended, normoactive bowel sounds and non-tender Palpation: soft Back/Spine no CVA tenderness and normal ROM Extremity normal to inspection General Extremety ED: Negative for edema General Extremity: Negative for edema Neuro oriented x3 and CN's II-XII intact bilaterally Sensorium / Orientation: alert Motor Exam: strength 5/5 throughout Psych Mood & Affect: anxious and tearful; Negative for depressed Skin no rashes or lesions noted and no wounds MDM MDM MDM Narrative Medical decision making narrative: Differential diagnosis includes anxiety anxiety reaction medication reaction conjunctivitis increased ocular pressure retinal detachment corneal injury cranial dislocation corneal abrasion I spoke with the patient and listen to her for about 30 minutes and she is doing better. I think it is most reasonable that the patient discharged home and have her call her catalyst recovery operator tomorrow morning. She does not wish anything for anxiety. History & Record Review Discussion w/independent historian: Patient Discharge Plan Triage Chief Complaint: Vision Prob ED Provider: Mundo Pollock Dx/Rx/DC Orders Clinical Impression: Blurred vision, Anxiety Instructions: ED Blurred Vision Prescriptions: No Action losartan 50 MG tablet 50 mg PO DAILY oxycodone-acetaminophen 1 TABLET tablet 1 tab PO Q4H PRN PRN (Reason: Pain) Qty: 20 0RF docusate sodium [DOK] 100 MG capsule 100 mg PO DAILY Qty: 20 0RF Hydrocodone Bit/Homatropine [Hycodan Syrup] 5 ML Udc 5 ml PO Q6H PRN PRN (Reason: Cough) Qty: 60 0RF losartan 25 mg tablet Patient Comments: take 1 tablet by mouth once daily for blood pressure Primary Care Provider: Elisa Chu NP Referrals: Ford Kyle MD [Med Staff - Active Staff] - 1 Day Elisa Chu NP, [employer] [Primary Care Provider] - Activity Restrictions/Additional Instructions: Please call Dr. Kyle office first thing tomorrow morning. Please tell them you have had 2 emergency department visits and we would like's evaluation of your vision. Print Language: German Disposition Disposition: Home, Self Care Discharge Date/Time: 07/22/24 22:48
== END 2024-07-22 22:48 | disposition home or self-care (01) ==
PROVIDERS: Emergency Provider Emergency Medicine; PCP Registered Nurse; Visit Provider Emergency Medicine
DX: H53.8 Other visual disturbances (principal); F41.9 Anxiety disorder, unspecified; I10 Essential (primary) hypertension; Z79.899 Other long term (current) drug therapy
CPT/HCPCS: 99282